=== PATIENT | female | born 1985 | race Caucasian/White ===

== ENCOUNTER 2017-03-15 18:00 | Inpatient (IN) | payer OTHER ==
--- NOTE | ~2017-03-15 | HP ---
Unit #: [id number] #: [id number] Patient: JOÃO [id number] [place] [address] [id number] I MR#: [id number] NAME: JOÃO FEBRUARY ROOM: P180 Age: 31 Sex: F Admission Date: 03/15/2017 : 1985 Attending Physician: Magdy Norman M.D. Admitting Physician: Magdy Norman M.D. Primary Care Physician: Magdy Jones M.D. HISTORY AND PHYSICAL HISTORY OF PRESENT ILLNESS The patient is a 31-year-old female admitted to [address] [place] [address] on 03-15-2017 to detox from methamphetamines. PAST MEDICAL HISTORY 1. Methamphetamine abuse 2. Diabetes type 1 3. Neuropathy PAST SURGICAL HISTORY 1. I & D of an abscess 2. 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 She lives with her boyfriend. She smokes a half pack of cigarettes daily and uses methamphetamines on a daily basis. FAMILY MEDICAL HISTORY Noncontributory. ALLERGIES No known drug allergies. CURRENT MEDICATIONS Lantus, Humalog and Zoloft. REVIEW OF SYSTEMS CONSTITUTIONAL: No fever or chills. HEENT: Denies any sore throat, ear pain or runny nose. CARDIOVASCULAR: Denies chest pain, irregular heart rhythm or palpitations. CHEST: Denies shortness of breath or cough. No hemoptysis. GASTROINTESTINAL: Denies nausea, vomiting, diarrhea or chronic constipation. ENDOCRINE: Denies history of increased thirst or urination. No recent significant weight loss or gain. GENITOURINARY: Denies dysuria, frequency, or hematuria. SKIN: Denies any rashes. HEMATOLOGIC: Denies history of increased bleeding or bruising. MUSCULOSKELETAL: Denies any hot, swollen joints. No generalized muscle pain. NEUROLOGIC: Denies problems with vision or speech. No frequent, severe Unit #: [id number] #: [id number] Patient: JOÃO headaches. No numbness, tingling or weakness in any extremities. Denies loss of bladder or bowel control. PHYSICAL EXAM GENERAL: She is awake, alert and oriented in no acute distress. VITAL SIGNS: Temperature 98.4, heart rate 94, respiration 18, blood pressure 146/105. HEIGHT: 5'2". WEIGHT: 135 pounds. SKIN: Warm and dry without rash or lesion. HEENT: Normocephalic. TMs not viewed. Oral and nasal passages clear. Conjunctivae clear. PERRLA. EOMs intact. NECK: Supple without lymphadenopathy or thyromegaly. HEART: Regular rate and rhythm without murmur. LUNGS: Clear. ABDOMEN: Soft, nontender. : Not done. EXTREMITIES: No evidence of cyanosis, clubbing or edema. Moves all without focal deficit. NEUROLOGICAL: Grossly within normal limits. Cranial Nerves: II: Visual mane are intact. III, IV AND : Extraocular movements are intact. Pupils are equal, round and reactive to light. V: Facial sensation is grossly normal. VII: Facial movements and expression are normal. VIII: Auditory acuity grossly intact. IX, X: Uvula is midline. Phonation is normal. XI: Patient shrugs shoulders and turns head normally. XII: Tongue protrudes in the midline. Sensory and Motor Function: Sensory and motor sensation is grossly normal. Motor: moves all extremities well. IMPRESSION 1. Psychiatric admission. 2. Methamphetamine abuse. 3. Type one diabetes. 4. Neuropathy. RECOMMENDATIONS Psychiatric per psychiatrist. MEDICAL: No contraindication to participate in facility activities. MEDICAL PROGNOSIS Fair. MEDICAL CONDITION Stable. Dictated by... Talib Doty/amairani TD: 03/16/2017 21:13 JOB #: [id number] Unit #: [id number] #: [id number] Patient: HISTORY AND PHYSICAL Page 1 of 1 X EDIE TORREZ APRN HISTORY AND PHYSICAL
--- NOTE | ~2017-03-15 | CO ---
Unit #: [id number] #: [id number] Patient: [id number] [place] [address] [id number] I MR#: [id number] NAME: JOÃO FEBRUARY ROOM: P180 Age: 31 Sex: F Admission Date: 03/15/2017 : 1985 Attending Physician: Magdy Norman M.D. Primary Care Physician: Magdy Jones M.D. Consultation Date: 03/16/2017 CONSULTATION REPORT ORDERING PROVIDER Dr. Norman. REASON FOR CONSULT Diabetic management. SUBJECTIVE The patient reports that she was diagnosed with type 1 diabetes at the age of 15. She is currently taking Lantus 25 units at night and Humalog carb counting and sliding scale insulin. Her last A1c was 9.6 two months ago that was down from 14 three months prior to that. She does report that sometimes when she gets high, she forgets to take doses of her insulin. OBJECTIVE Her blood sugars have been anywhere from 95 fasting to 200 before meals. ASSESSMENT Type 1 diabetes. PLAN To continue the patient on her home medications. Dictated by... Lizz Abernathy A.P.R.N. for Daphne Parham/ivonne TD: 03/17/2017 00:05 JOB #: [id number] CONSULTATION REPORT Page 1 of 1 X LIZZ ABERNATHY APRN CONSULTATION REPORT
--- NOTE | ~2017-03-15 | PN ---
Unit #: [id number] #: [id number] Patient: JOÃOSAVANAH [id number] [facility] [address] [place] [address] [id number] I MR#: [id number] NAME: SAVANAH MOYER ROOM: P180 Age: 31 Sex: F Admission Date: 03/15/2017 : 1985 Attending Physician: Magdy Norman M.D. Admitting Physician: Magdy Norman M.D. Primary Care Physician: Daphne Boyle PROGRESS NOTES EXAM 03/18/2017 DISCUSSION Savanah has active detox symptoms today. Her mood is anxious and depressed with congruent affect. She is alert and fully oriented with no psychosis. She does continue to endorse suicidal ideation. ASSESSMENT Major depression. Opiate dependence. PLAN We will add Flexeril to the detox protocol and monitor for response. Dictated by... Magdy Norman M.D. [facility]/dj TD: 03/19/2017 05:37 JOB #: [id number] [facility] PROGRESS NOTES Page 1 of 1 X Magdy Norman MD X PROGRESS NOTE
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
--- NOTE | ~2017-03-15 | PN ---
Unit #: [id number] #: [id number] Patient: JOÃOFEBRUARY [id number] [facility] [address] [place] [address] [id number] I MR#: [id number] NAME: JOÃO FEBRUARY ROOM: P180 Age: 31 Sex: F Admission Date: 03/15/2017 : 1985 Attending Physician: Magdy Norman M.D. Admitting Physician: Magdy Norman M.D. Primary Care Physician: Daphne Boyle PROGRESS NOTES DATE 03/17/2017 DISCUSSION Savanah has moved to [facility] for programming. She continues to have active detox symptoms today although she is sleeping better with a little bit better appetite. She is alert and fully oriented with no psychosis and no suicidal ideation. She expresses interest in the Vivitrol injection, and this process was explained to her, and she seems quite agreeable to pursue this after discharge. Her blood sugar remains elevated, but she is compliant with medication treatments. ASSESSMENT Opiate dependence. PLAN Continue current treatment plan. Dictated by... Daphne StrangeH/bzbruce TD: 03/18/2017 07:24 JOB #: [id number] [facility] PROGRESS NOTES Page 1 of 1 X Magdy Norman MD PROGRESS NOTE
[~2017-03-15 18:00] MED LIST: ALPRAZOLAM PO; ASPIRIN81 MG PO; AZITHROMYCIN250 MG PO; BACITRACIN30 GM TOP; BACTRIM DS TABL1 TA1 PO; BACTRIM DS TABL1 TA2 PO; BACTRIM DS TABL1 TAB PO; CELEXA PO; CIPRO PO; CLEOCIN HCL300 M1 PO; CLEOCIN PO; DAKIN'S3840 ML TOP; DARVOCET-N 1001 TAB PO; DIGEX CAPSULE1 CAP PO; FIORICET W/CODE1 CAP PO; FLAGYL PO; FLEXERIL10 M1; FLEXERIL10 M1 PO; FLEXERIL10 MG PO; FLONASE16 GM; HUMALOG100 U/M1; HUMALOG100 U/ML; HUMALOG100 U/ML SUBQ; HUMULOG; IBUPROFEN PO; KEFLEX PO; KEFLEX500 M1 PO; KEFLEX500 MG PO; KETOPROFEN PO; LANTUS100 U/M1; LANTUS100 U/ML; LANTUS100 U/ML INJ; LANTUS100 U/ML SUBQ; LISINOPRIL PO; LORCET HD CAPSU1 CA1 PO; LORTAB 2.5/5001 TAB PO; LORTAB 5/500 TA1 TA1 PO; LORTAB 5/500 TA1 TA2 PO; LORTAB 7.5-5001 TAB PO; METHADONE PO; MOTRIN600 MG PO; NORCO 5/325 TAB1 TAB PO; NOVOLOG100 U/ML; NOVOLOG100 U/ML SUBQ; ORUDIS75 M1 PO; PEN-VEE K PO; PENICILLIN PO; PERCOCET5/325 PO; PHENERGAN PO; PHENERGAN PR; PHENERGAN25 MG PO; PREDNISONE PO; PRINCIPEN500 M1 PO; PYRIDIUM PO; RITE-AID PHARMACY; TYLENOL #3 PO; TYLENOL325 M1 PO; VICODIN 5/500 T1 TAB PO; VICODIN PO; ZOFRAN PO; ZOLOFT PO; ZYVOX PO
[2017-03-16 12:13] LABS: BASOPHIL# 0.1 X10e3 (0-0.3); BASOPHIL% 0.5 % (0-2.5); EOSINOPHIL# 0.4 X10e3 (0-0.7); EOSINOPHIL% 3.6 % (0.0-7.0); HEMATOCRIT 41.6 % (35.0-45.0); HEMOGLOBIN 13.5 gm/dL (12.0-16.0); LYMPHOCYTE# 2.6 X10e3 (1.0-3.5); LYMPHOCYTE% 21.1 % (17.0-45.0); MEAN CORPUSCULAR HEMOGLOBIN 27.8 PG (28-34); MEAN CORPUSCULAR HGB CONC 32.3 g/dL (30-36); MEAN PLATELET VOLUME 8.3 FL (6.5-11.5); MONOCYTE# 0.8 X10e3 (0-1.0); MONOCYTE% 6.7 % (3.0-12.0); NEUTROPHIL# 8.5 X10e3 (1.5-7.1); NEUTROPHIL% 68.1 % (40-75); PLATELET COUNT 329 X10e3 (140-420); RED BLOOD COUNT 4.84 X10e (3.90-5.30); WHITE BLOOD COUNT 12.5 X10e3 (4.0-10.5)
[2017-03-16 12:14] LABS: DIFF IND NO
[2017-03-16 12:53] LABS: ALBUMIN SERUM 3.6 g/dL (3.5-5.0); BILIRUBIN,TOTAL 0.8 mg/dL (0.2-2.0); CALCIUM SERUM 9.1 mg/dL (8.4-10.2); CREATININE SERUM 0.8 mg/dL (0.6-1.4); GLOM FILT RATE Estimated 99.7 mL/min (>60); PROTEIN TOTAL SERUM 6.6 g/dL (6.0-8.3)
[2017-03-19 08:21] LABS: HA AB IGM (HEPPAN) Nonreactive (()); HB CORE AB IGM (HEPPAN) Nonreactive (Nonreactive); HB S AG (HEPPAN) Nonreactive (Nonreactive); HEP C AB (HEPPAN) Nonreactive (Nonreactive); HEP C AB SIGNAL TO CUTOFF 0.01 ratio (<1.00)
== END 2017-03-21 12:00 | DRG 897 ==
LOC: P2S 18:00 → P1E 03-16 20:52
PROVIDERS: Psychiatry & Neurology Psychiatry
PROC: HZ2ZZZZ Detoxification Services for Substance Abuse Treatment (ICD-10-PCS; principal; 2017-03-15)
DX: F11.23 Opioid dependence with withdrawal (principal); R45.851 Suicidal ideations; Z79.4 Long term (current) use of insulin; E10.9 Type 1 diabetes mellitus without complications; I10 Essential (primary) hypertension; F17.210 Nicotine dependence, cigarettes, uncomplicated; F15.10 Other stimulant abuse, uncomplicated; G62.9 Polyneuropathy, unspecified
CPT/HCPCS: 80053; 80074; 82947; 85025; 87806; J2550